=== PATIENT | female | born 1990 | race Caucasian/White ===

== ENCOUNTER 2024-11-15 02:12 | Emergency (ER) | payer MEDICAID, SELFPAY ==
[2024-11-15 02:13] VITALS: BMI 27.8
[2024-11-15 02:25] VITALS: BP 118/79; PULSE 105; RESP 18; TEMP 36.8; O2SAT 99
--- NOTE | 2024-11-15 03:05 | XR_ITS ---
Examination: Abdomen sonogram, Limited Date and time of exam: November 15, 2024 at 0422 hrs. Indications: Right upper abdominal pain beginning 2 days ago Technique: Real-time kaplan scale transabdominal sonographic images of the upper abdomen obtained. Findings: Gallbladder contracted around large gallstone Gallbladder wall is thickened 0.5 cm Common bile duct 0.3 cm Pancreatic head 2.5 cm Liver 14.5 cm fatty infiltration no focal liver lesions Normal hepatopedal portal venous flow Patent IVC Impression: Cholelithiasis Thickened gallbladder wall suspicious for cholecystitis, consider HIDA scan or MRCP follow-up
[2024-11-15 03:37] LABS: HCG Qualitative,Urine Negative
--- NOTE | 2024-11-15 03:37 | PC.NURSE ---
Initial contact with pt. Pt c/o mid-epigastric pain since 18:00.
[2024-11-15 03:40] LABS: Basophils % (Auto) 1 % (0-2.5); Eosinophils # (Auto) 0.1 Thou/mm3 (0.0-0.5); Eosinophils % (Auto) 2 % (0-10); Hematocrit 38.6 % (36.0-46.0); Immature Granulocytes % (Auto) 0 % (0-0); Immature Granulocytes Auto 0.02 Thou/mm3 (0.00-0.00); Lymphocytes # (Auto) 2.8 Thou/mm3 (1.0-4.8); Lymphocytes % (Auto) 32 % (10-50); Mean Corpuscular HGB Conc 33.7 g/dl (31.0-37.0); Mean Corpuscular Hemoglobin 31.6 pg (25.0-35.0); Mean Corpuscular Volume 94 fL (80-100); Monocytes # (Auto) 0.6 Thou/mm3 (0.0-0.8); Monocytes % (Auto) 6 % (0-12); Neutrophils # (Auto) 5.1 Thou/mm3 (1.8-7.7); Neutrophils % (Auto) 59 % (37-80); Nucleated Red Blood Cell % 0 /100 WBC (0); Platelet Count 239 Thou/mm3 (140-440); RDW Standard Deviation 44.3 fL (36.4-46.3); Red Blood Count 4.11 Miln/mm3 (4.00-5.20); White Blood Count 8.6 Thou/mm3 (3.6-11.0)
[2024-11-15] MEDS: ONDANSETRON ODT 4 MG TABRAP PO (03:42)
[2024-11-15 03:43] LABS: Amphetamine/Methamp Scrn,U Negative (Negative); Barbiturate Screen,Urine Negative (Negative); Benzodiazepines Screen,Urine Negative (Negative); Benzoylecgonine Screen, Ur Negative (Negative); Fentanyl Screen,Urine Negative (Negative); Opiate Screen,Urine Negative (Negative); THC Screen,Urine Negative (Negative)
[2024-11-15] MEDS: FAMOTIDINE 20 MG TABLET 40 MG PO (03:44)
[2024-11-15] MEDS: MG HYD/AL HYD/SIME (Maalox Reg) SUSP 30 ML UDC PO (03:45)
[2024-11-15 03:46] LABS: Alanine Aminotransferase 36 U/L (10-49); Albumin, Serum 4.3 gm/dL (3.5-5.0); Albumin/Globulin Ratio 1.7 (1.2-2.2); Alkaline Phosphatase 73 U/L (46-116); Anion Gap 6 (7-16); Aspartate Amino Transferase 18 U/L (0-34); BUN/Creatinine Ratio 20 Ratio (12-20); Bilirubin,Total 0.3 mg/dL (0.3-1.2); Blood Urea Nitrogen 16 mg/dL (9-23); Calcium 9.1 mg/dL (8.3-10.6); Calcium (Corrected) 9.1 mg/dL (8.5-10.1); Chloride 109 mMol/L (98-107); Creatinine (Component) 0.8 mg/dL (0.6-1.3); Estimated Creatinine Clearance 108.3 mL/min (>60); Globulin 2.5 gm/dL (2.3-3.5); Glucose 91 mg/dL (74-106); Lipase 41 U/L (12-53); Osmolality,Calculated 280 (275-295); Potassium 3.7 mMol/L (3.4-5.1); Sodium 140 mMol/L (136-145); Total Protein 6.8 gm/dL (5.7-8.2); eGFR > 60 See Note
[2024-11-15 03:50] VITALS: BP 112/68; PULSE 80; RESP 18; O2SAT 98
--- NOTE | 2024-11-15 04:20 | PC.NURSE ---
To US via w/c.
--- NOTE | 2024-11-15 04:36 | PC.NURSE ---
Pt back from US, pain tolerable per pt.
--- NOTE | 2024-11-15 05:21 | PRELIM_ITS ---
Gallbladder ultrasound. November 15, 2024 at 0422 hours Clinical history: Right upper quadrant, epigastric pain. Comparison: No prior study is available for comparison. Findings: Gallbladder wall is 4.6 mm thick. Gallbladder is filled with shadowing calculi. Common bile duct is 3 mm in diameter. The liver is 14.5 cm long. Main portal vein is antegrade. Pancreas is unremarkable. Impression: Cholelithiasis with wall thickening suggesting cholecystitis. Report Electronically Signed By: Ted Anne 11/15/2024 5:21:08 AM [EST]
[2024-11-15 05:32] VITALS: BP 104/63; PULSE 80; RESP 18; TEMP 36.8; O2SAT 97
--- NOTE | 2024-11-15 05:35 | EDNOTE_ITS ---
<Statement entered by Manisha Bardales MD - 11/15/24 18:35> As co-signing physician, I was present and available for consult prn. I concur with the plan and care as documented by the midlevel provider. ED Abdominal Pain RME/HPI General Chief Complaint: Abdominal Pain Stated complaint: UPPER ABD PAIN Time seen by provider: 11/15/24 03:04 Arrival date/time: 11/15/24 02:12 34F with history of gallstones presents to ED with 1 day of epigastric and RUQ pain (epi>RUQ) and some N/V. Patient denies dysuria, diarrhea, and vaginal bleeding. Limitations: no limitations Related Data Previous Rx's ?Medication ?Instructions ?Recorded Hydrocodone/Acetaminophen * (NORCO 1 tab PO Q4H PRN pa in #30 tabs 02/16/16 5/325 *) gabapentin 300 mg capsule 300 mg PO BID #30 caps 02/10 hydrocodone 5 mg-acetaminophen 300 1 tab PO BID PRN pa in #10 tabs 05/06/24 mg tablet Allergies Allergy/AdvReac Type Severity Reaction Status Date / Time No Known Allergies Allergy Verified 11/15/24 02:16 Review of Systems Review of Systems Systems Reviewed: All systems reviewed, normal except as documented Constitutional Constitutional: Reports system reviewed and no additional complaints, except as documented, Denies fever(s) and Denies headache(s) ENT Ears, Nose, Mouth, and Throat: Denies disequilibrium and Denies headache(s) Cardiovascular Cardiovascular: Reports system reviewed and no additional complaints, except as documented, Denies chest pain and Denies dyspnea Respiratory Respiratory: Reports system reviewed and no additional complaints, except as documented, Denies cough and Denies dyspnea Gastrointestinal Gastrointestinal: Reports system reviewed and no additional complaints, except as documented, Reports as per HPI, Reports abdominal pain, Reports nausea and Reports vomiting Neurologic Neurologic: Reports system reviewed and no additional complaints, except as documented, Denies confusion, Denies disequilibrium and Denies headache(s) Psychiatric Psychiatric: Denies confusion Past Medical History Social History SMOKING STATUS: Current some day smoker ED Exam General Limitations: Present no limitations General appearance: Present alert and in no apparent distress Head Head exam: Present atraumatic Eye Eye exam: Present normal appearance, PERRL and EOMI ENT ENT exam: Present normal exam, normal oropharynx and mucous membranes moist Neck Neck exam: Present normal inspection, full ROM and trachea midline Chest Chest inspection: Present normal inspection and symmetric chest wall rise Respiratory Respiratory exam: Present normal lung sounds bilaterally Cardiovascular Cardiovascular exam: Present regular rate, normal rhythm and normal heart sounds Abdominal Exam Abdominal exam: Present soft and normal bowel sounds Abdominal tenderness: Present RUQ, epigastrium and mild Extremities Exam Extremities exam: Present normal inspection and full ROM Back Exam Back exam: Present normal inspection and full ROM Neurological Exam Neurological exam: Present alert, oriented X3 and CN II-XII intact Psychiatric Psychiatric exam: Present normal affect and normal mood Skin Skin exam: Present warm, dry, intact and normal color Course Quality Measures none Orders Category Date Time Status US gall bladder Stat Exams 11/15/24 03:05 Taken CBC Stat Lab 11/15/24 03:15 Completed CMP [Comprehensive Metabolic Panel] Stat Lab 11/15/24 03:15 Completed Drug Screen,Urine Stat Lab 11/15/24 03:11 Completed HCG Qualitative,Urine Stat Lab 11/15/24 03:11 Completed Lipase Stat Lab 11/15/24 03:15 Completed Famotidine [Pepcid] Med 11/15/24 03:05 Discontinued 40 mg PO X1 ONE Ondansetron Odt [Zofran Odt] Med 11/15/24 03:05 Discontinued 4 mg PO X1 ONE mg Hyd/Al Hyd/Mandi Susp [Maalox Susp] Med 11/15/24 03:05 Discontinued 30 ml PO X1 ONE Vital Signs Vital signs: Vital Signs Temperature 98.2 F 11/15/24 02:25 Pulse Rate 105 H 11/15/24 02:25 Respiratory Rate 18 11/15/24 02:25 Blood Pressure 118/79 11/15/24 02:25 Pulse Oximetry (%) 99 11/15/24 02:25 Oxygen Delivery Method Room Air 11/15/24 02:25 O2 at 99% on RA and WNLs Abdominal Pain MDM MDM Narrative MDM Narrative:: 34F with history of gallstones presents to ED with 1 day of epigastric and RUQ pain (epi>RUQ) and some N/V. Patient denies dysuria, diarrhea, and vaginal bleeding. Physical exam reveals RUQ and epigastric tenderness (epi>RUQ). Patient is afebrile, calm, and alert. GI cocktail greatly improved symptoms. US reveals possible cholecystitis. However, given no leukocytosis, normal LFTs and lipase, improved symptoms with GI cocktail, primarily epigastric pain/tenderness, and that patient wants to go home rather than wait to evaluated by surgeon in AM; patient will be discharged. Patient data External records reviewed:: [facility] previous records Clinical information provided by:: patient Social determinants that could affect healthcare access:: none Patient has the following chronic illnesses:: none How is presenting disease/condition affected by chronic disease/condition?: no chronic disease Evaluation data The following diagnostics were reviewed and interpreted by me:: lab results and radiology exam(s) Lab and/or radiology exams considered but not ordered:: ordered Interpretation Summary: above Medications / Prescriptions Medications or Prescriptions considered but not ordered:: ordered Medication administrations:: Medication Administration History Discontinued Medications Al Hydrox/Mg Hydrox/Simethicone (Mg Hyd/Al Hyd/Mandi (Maalox Reg) Susp 30 Ml Udc) 30 ml PO X1 ONE Stop: 11/15/24 03:06 Last Admin: 11/15/24 03:45 Dose: 30 ml Documented By: CEDRICK Famotidine (Famotidine 20 Mg Tablet) 40 mg PO X1 ONE Stop: 11/15/24 03:06 Last Admin: 11/15/24 03:44 Dose: 40 mg Documented By: CEDRICK Ondansetron HCl (Ondansetron Odt 4 Mg Tabrap) 4 mg PO X1 ONE; Protocol Stop: 11/15/24 03:06 Last Admin: 11/15/24 03:42 Dose: 4 mg Documented By: CEDRICK above Consultations Consultation(s) initiated? (list below): No Diagnosis Differential diagnosis abdominal pain: abdominal pain, acute appendicitis, calculus of kidney, constipation, diverticulitis, endometriosis, gastroenteritis, pancreatitis, small bowel obstruction and other (gastritis, biliary disease) Most likely diagnosis given after review of the tests above:: gastritis, biliary disease Admission Indicated Admission indicated?: not indicated Admission Request Was there a request for admission?: No Disposition Plan Disposition Plan: Discharge Discharge Attestation Discharge Attestation: The patient and all family members were given an opportunity to ask questions and understood the discharge instructions. Discharge instructions specifically effects, indications for sooner follow up or return to the emergency department, and the expected course of current diagnosis. Patient condition: Stable Discharge Plan Plan Patient Disposition: HOME (Self Care) Disposition Comment: Stable Prescriptions/Referrals Prescriptions/Med Rec: No Action Hydrocodone/Acetaminophen * (NORCO 5/325 *) 1 TAB tablet 1 tab PO Q4H PRN (Reason: pain) Qty: 30 0RF gabapentin 300 mg capsule 300 mg PO BID Qty: 30 0RF hydrocodone-acetaminophen 5-300 mg tablet 1 tab PO BID MDD 10 mg PRN (Reason: pain) Qty: 10 0RF Referrals: Nano Paredes PA-C [Primary Care Provider] - In 1 week Problem List Clinical Impression: Gastritis, Gallstones Patient/Caregiver Discharge Instructions Education Materials: ED Gallstones with Biliary Colic, ED Gastritis (Adult) Additional Instructions: Please follow-up with PCP within 24-48 hours and return immediately if symptoms worsen. In terms of gallstones, can also see PCP for referral to general surgeon for elective/preemptive outpatient gallbladder removal. In terms of gastritis, try some OTC TUMs and/or Pepcid. If problem persists, can see PCP for possible additional evaluation/treatment including PPI use, H. pylori testing and/or referral to GI. Print Language: Occitan Stand Alone Forms: Patient Portal Info Letter KERA/TERRY Supervising Physician KERA/TERRY Supervising Physician: Dr. Bardales
--- NOTE | 2024-11-15 05:36 | PC.NURSE ---
Kobe COTE spoke to pt with regards to results and plan of care.
== END 2024-11-15 05:36 | disposition home or self-care (01) ==
PROVIDERS: Physician Assistant; Emergency Provider Emergency Medicine; PCP Physician Assistant
DX: K29.70 Gastritis, unspecified, without bleeding (principal); K80.20 Calculus of gallbladder without cholecystitis without obstruction
CPT/HCPCS: 36415; 76705; 80053; 80307; 81025; 83690; 85025; 99284; Q0162; A9270

== ENCOUNTER 2024-11-24 22:24 | Emergency (ER) | payer MEDICAID, SELFPAY ==
[2024-11-24 22:24] VITALS: BMI 27.3
[2024-11-24 22:32] VITALS: BP 120/82; PULSE 91; RESP 20; TEMP 36.8; O2SAT 98
--- NOTE | 2024-11-24 22:36 | PD.EDRME ---
Rapid Medical Screening Exam RME Arrival date/time: 11/24/24 22:24 34-year-old female past medical history of gallstones presents emergency department complaining of epigastric pain that radiates towards the back with episodes of vomiting that started earlier today. Chief Complaint: Abdominal Pain Time Seen by Provider: 11/24/24 22:34 Vital signs: Vital Signs Temperature 98.3 F 11/24/24 22:32 Pulse Rate 91 11/24/24 22:32 Respiratory Rate 20 11/24/24 22:32 Blood Pressure 120/82 11/24/24 22:32 Pulse Oximetry (%) 98 11/24/24 22:32 Oxygen Delivery Method Room Air 11/24/24 22:32 Vital signs reviewed by provider: Yes
[2024-11-24 23:13] LABS: Basophils # (Auto) 0.1 Thou/mm3 (0.0-0.2); Basophils % (Auto) 1 % (0-2.5); Eosinophils # (Auto) 0.1 Thou/mm3 (0.0-0.5); Eosinophils % (Auto) 1 % (0-10); Hematocrit 40.4 % (36.0-46.0); Hemoglobin 13.8 g/dL (12.0-16.0); Immature Granulocytes % (Auto) 0 % (0-0); Immature Granulocytes Auto 0.03 Thou/mm3 (0.00-0.00); Lymphocytes # (Auto) 4.3 Thou/mm3 (1.0-4.8); Lymphocytes % (Auto) 37 % (10-50); Mean Corpuscular HGB Conc 34.2 g/dl (31.0-37.0); Mean Corpuscular Volume 94 fL (80-100); Monocytes # (Auto) 0.7 Thou/mm3 (0.0-0.8); Monocytes % (Auto) 6 % (0-12); Neutrophils # (Auto) 6.3 Thou/mm3 (1.8-7.7); Neutrophils % (Auto) 55 % (37-80); Nucleated Red Blood Cell % 0 /100 WBC (0); Platelet Count 271 Thou/mm3 (140-440); RDW Standard Deviation 43.6 fL (36.4-46.3); Red Blood Count 4.31 Miln/mm3 (4.00-5.20); White Blood Count 11.6 Thou/mm3 (3.6-11.0)
[2024-11-24 23:16] LABS: HCG,Qualitative Serum Negative
[2024-11-24] MEDS: KETOROLAC INJ 60 MG/2 ML VIAL 30 MG IM (23:19)
[2024-11-24] MEDS: ONDANSETRON ODT 4 MG TABRAP PO (23:20)
[2024-11-24 23:22] LABS: Anion Gap 8 (7-16); BUN/Creatinine Ratio 16 Ratio (12-20); Blood Urea Nitrogen 14 mg/dL (9-23); Carbon Dioxide 23.7 mMol/L (20.0-31.0); Chloride 107 mMol/L (98-107); Creatinine (Component) 0.9 mg/dL (0.6-1.3); Potassium 3.5 mMol/L (3.4-5.1); Sodium 139 mMol/L (136-145)
[2024-11-24 23:23] LABS: Alanine Aminotransferase 20 U/L (10-49); Albumin, Serum 4.8 gm/dL (3.5-5.0); Albumin/Globulin Ratio 1.9 (1.2-2.2); Alkaline Phosphatase 68 U/L (46-116); Aspartate Amino Transferase 20 U/L (0-34); Bilirubin,Total 0.3 mg/dL (0.3-1.2); Calcium 9.5 mg/dL (8.3-10.6); Calcium (Corrected) 9.5 mg/dL (8.5-10.1); Estimated Creatinine Clearance 95.5 mL/min (>60); Globulin 2.5 gm/dL (2.3-3.5); Glucose 105 mg/dL (74-106); Lipase 60 U/L (12-53); Osmolality,Calculated 278 (275-295); Total Protein 7.3 gm/dL (5.7-8.2); eGFR > 60 See Note
--- NOTE | 2024-11-25 00:05 | XR_ITS ---
Examination: Abdomen sonogram, Limited Date and time of exam: November 22, 2024 0102 hrs. Indications: Right upper abdominal pain nausea vomiting beginning 3:00 PM yesterday Technique: Real-time kaplan scale transabdominal sonographic images of the upper abdomen obtained. Findings: 3.6 cm gallstone Gallbladder wall 0.30 cm no edema Common bile duct 0.40 cm Pancreatic head 2.0 cm Liver 13.4 cm no focal liver lesions. Normal hepatopedal portal venous flow. Patent IVC. Impression: Cholelithiasis, negative for cholecystitis Normal common bile duct.
--- NOTE | 2024-11-25 02:11 | PRELIM_ITS ---
Gallbladder ultrasound with doppler and wave doppler spectral analysis. November 25, 2024 0102 hours Clinical history: Epigastric pain, history of gallstones. Comparison: None available at the time of this report. Findings: The visualized liver is normal in echogenicity without mass or ductal dilatation. Gallstones. No gallbladder wall thickening or pericholecystic fluid is identified. The common duct is normal in caliber at 3.8 mm. No free fluid is demonstrated on the submitted images. The portal vein is patent with hepatopetal flow and normal wave Doppler spectral analysis. Francois sign is not available at the time of this report. Impression: Gallstones without evidence of acute cholecystitis. Report Electronically Signed By: Justin Gonzales 11/25/2024 2:10:55 AM [EST]
[2024-11-25 02:12] LABS: Collection Type, Urine Clean Catch
[2024-11-25 02:28] LABS: Bilirubin,Urine Negative (Negative); Blood,Urine Negative (Negative); Clarity,Urine Clear (Clear/Hazy); Color,Urine Yellow (Lt Yel-Yel); Culture Indicated,Urine Not Indicated; Glucose, Urine Negative (Negative); Ketones,Urine Negative (Negative); Leukocyte Esterase,Urine Positive (Negative); Nitrite,Urine Negative (Negative); Protein,Urine Trace (Neg - Trace); RBC,Urine 4 /hpf (0-3); Squamous Epithelial Cell,Urine 14 /hpf (0-5); Urobilinogen,Urine Negative mg/dL (0.0-1.0); WBC,Urine 7 /hpf (0-5)
--- NOTE | 2024-11-25 02:31 | PD.EDABDPN ---
ED Abdominal Pain RME/HPI General Chief Complaint: Abdominal Pain Stated complaint: HX GALLSTONES ABD PAIN Time seen by provider: 11/24/24 22:34 Arrival date/time: 11/24/24 22:24 34-year-old female past medical history of gallstones presents emergency department complaining of epigastric pain that radiates towards the back with episodes of vomiting that started earlier today. Patient denies any fever, chills, diarrhea, or any other associated symptom. Source: patient Mode of arrival: ambulatory Limitations: no limitations RME / HPI RME / HPI narrative: 11/24/24 22:24 34-year-old female past medical history of gallstones presents emergency department complaining of epigastric pain that radiates towards the back with episodes of vomiting that started earlier today. Related Data Previous Rx's ?Medication ?Instructions ?Recorded Hydrocodone/Acetaminophen * (NORCO 1 tab PO Q4H PRN pain #30 tabs 02/15/ 5/325 *) gabapentin 300 mg capsule 300 mg PO BID #30 caps 02/11/24 hydrocodone 5 mg-acetaminophen 300 1 tab PO BID PRN pain #10 tabs 05/06/24 mg tablet acetaminophen 500 mg capsule 500 mg PO Q6H PRN pain #30 caps 11/25/24 ibuprofen 600 mg tablet 600 mg PO Q8H PRN pain #20 tabs 11/25/24 ondansetron 4 mg disintegrating 4 mg PO Q8H PRN nausea and 11/25/24 tablet vomiting #7 tabs Allergies Allergy/AdvReac Type Severity Reaction Status Date / Time No Known Allergies Allergy Verified 11/15/24 02:16 Review of Systems Review of Systems Systems Reviewed: All systems reviewed, normal except as documented Constitutional Constitutional: Reports system reviewed and no additional complaints, except as documented, Denies body ache(s), Denies chills and Denies fever(s) Eyes Eyes: Reports system reviewed and no additional complaints, except as documented and Denies change in vision ENT Ears, Nose, Mouth, and Throat: Reports system reviewed and no additional complaints, except as documented, Denies disequilibrium, Denies dizziness, Denies sore throat and Denies vertigo Cardiovascular Cardiovascular: Reports system reviewed and no additional complaints, except as documented, Denies chest pain and Denies dyspnea Respiratory Respiratory: Reports system reviewed and no additional complaints, except as documented, Denies chest congestion, Denies cough and Denies dyspnea Gastrointestinal Gastrointestinal: Reports system reviewed and no additional complaints, except as documented, Reports abdominal pain, Denies nausea and Reports vomiting Musculoskeletal Musculoskeletal: Reports system reviewed and no additional complaints, except as documented, Denies abnormal gait and Denies arthralgias Integumentary/Breasts Skin/Breast: Reports system reviewed and no additional complaints, except as documented, Denies erythema, Denies rash and Denies wounds Neurologic Neurologic: Reports system reviewed and no additional complaints, except as documented, Denies abnormal gait, Denies disequilibrium, Denies dizziness and Denies vertigo Past Medical History Social History SMOKING STATUS: Former smoker ED Exam General Limitations: Present no limitations General appearance: Present alert and in no apparent distress Head Head exam: Present atraumatic Eye Eye exam: Present normal appearance, PERRL and EOMI ENT ENT exam: Present normal exam, normal oropharynx and mucous membranes moist Neck Neck exam: Present normal inspection, full ROM and trachea midline Chest Chest inspection: Present normal inspection and symmetric chest wall rise Respiratory Respiratory exam: Present normal lung sounds bilaterally Cardiovascular Cardiovascular exam: Present regular rate, normal rhythm and normal heart sounds Abdominal Exam Abdominal exam: Present soft and normal bowel sounds; Absent Francois's sign or tenderness at [place]Bur[place]'s Point Abdominal tenderness: Present epigastrium Extremities Exam Extremities exam: Present normal inspection and full ROM Back Exam Back exam: Present normal inspection and full ROM Neurological Exam Neurological exam: Present alert, oriented X3 and CN II-XII intact Psychiatric Psychiatric exam: Present normal affect and normal mood Skin Skin exam: Present warm, dry, intact and normal color Course Quality Measures none Orders Category Date Time Status US gall bladder Stat Exams 11/25/24 00:05 Taken CBC Stat Lab 11/24/24 22:47 Completed CMP [Comprehensive Metabolic Panel] Stat Lab 11/24/24 22:47 Completed Drug Screen,Urine Stat Lab 11/25/24 01:52 Received HCG,Qualitative Serum Stat Lab 11/24/24 22:47 Completed Lipase Stat Lab 11/24/24 22:47 Completed Urinalysis, C/S if Indicated Stat Lab 11/25/24 01:52 Completed Ketorolac Inj [Toradol Inj] Med 11/24/24 22:36 Discontinued 30 mg IM X1 ONE Ondansetron Odt [Zofran Odt] Med 11/24/24 22:36 Discontinued 4 mg PO X1 ONE Vital Signs Vital signs: Vital Signs Temperature 98.3 F 11/24/24 22:32 Pulse Rate 91 11/24/24 22:32 Respiratory Rate 20 11/24/24 22:32 Blood Pressure 120/82 11/24/24 22:32 Pulse Oximetry (%) 98 11/24/24 22:32 Oxygen Delivery Method Room Air 11/24/24 22:32 98% room air within normal limits Abdominal Pain MDM MDM Narrative MDM Narrative:: 34-year-old female past medical history of gallstones presents emergency department complaining of epigastric pain that radiates towards the back with episodes of vomiting that started earlier today. Patient denies any fever, chills, diarrhea, or any other associated symptom. CBC was unremarkable for any leukocytosis. CMP was unremarkable for any elevated LFTs or gross electrolyte abnormalities. Lipase mild elevation of 60. Ultrasound just on remarkable for gallstones but no evidence of cholecystitis. Patient reported significant improvement in pain and symptoms after pain medication with no more episodes of vomiting. Patient stable for discharge. Patient instructed to follow-up with primary care provider and request referral to general surgeon and return to emergency department for any worsening symptoms or as needed. Patient data External records reviewed:: [facility] previous records Clinical information provided by:: patient Social determinants that could affect healthcare access:: none Patient has the following chronic illnesses:: See chart How is presenting disease/condition affected by chronic disease/condition?: exacerbated by Evaluation data The following diagnostics were reviewed and interpreted by me:: lab results and radiology exam(s) Lab and/or radiology exams considered but not ordered:: Ordered Interpretation Summary: Interpreted by me Medications / Prescriptions Medications or Prescriptions considered but not ordered:: Ordered Medication administrations:: Medication Administration History Discontinued Medications Ketorolac Tromethamine (Ketorolac Inj 60 Mg/2 Ml Vial) 30 mg IM X1 ONE Stop: 11/24/24 22:37 Last Admin: 11/24/24 23:19 Dose: 30 mg Documented By: FAIZAN Ondansetron HCl (Ondansetron Odt 4 Mg Tabrap) 4 mg PO X1 ONE; Protocol Stop: 11/24/24 22:37 Last Admin: 11/24/24 23:20 Dose: 4 mg Documented By: FAIZAN Given Consultations Consultation(s) initiated? (list below): No Diagnosis Differential diagnosis abdominal pain: abdominal pain, acute appendicitis, calculus of kidney, constipation, diverticulitis, endometriosis, gastroenteritis, pancreatitis and small bowel obstruction Most likely diagnosis given after review of the tests above:: Gallstones Admission Indicated Admission indicated?: not indicated Admission Request Was there a request for admission?: No Disposition Plan Disposition Plan: Discharge Discharge Attestation Discharge Attestation: The patient and all family members were given an opportunity to ask questions and understood the discharge instructions. Discharge instructions specifically effects, indications for sooner follow up or return to the emergency department, and the expected course of current diagnosis. Patient condition: Stable Discharge Plan Plan Patient Disposition: HOME (Self Care) Disposition Comment: Stable Prescriptions/Referrals Prescriptions/Med Rec: New ibuprofen 600 mg tablet 600 mg PO Q8H PRN (Reason: pain) Qty: 20 0RF ondansetron 4 mg tablet,disintegrating 4 mg PO Q8H PRN (Reason: nausea and vomiting) Qty: 7 0RF acetaminophen 500 mg capsule 500 mg PO Q6H PRN (Reason: pain) Qty: 30 0RF No Action Hydrocodone/Acetaminophen * (NORCO 5/325 *) 1 TAB tablet 1 tab PO Q4H PRN (Reason: pain) Qty: 30 0RF gabapentin 300 mg capsule 300 mg PO BID Qty: 30 0RF hydrocodone-acetaminophen 5-300 mg tablet 1 tab PO BID MDD 10 mg PRN (Reason: pain) Qty: 10 0RF Referrals: Ronda Forbes, RO[employer]ER INSTALLER [Primary Care Provider] - In 1 week Problem List Clinical Impression: Gallstones Patient/Caregiver Discharge Instructions Discharge Activity: activity as tolerated Education Materials: Treating Gallstones, Discharge Instructions for ..., ED Gallstones with Biliary Colic Additional Instructions: Take ibuprofen as needed for pain. Drink plenty of fluids and stay hydrated. Avoid eating fatty spicy foods for the next 2 to 3 days. Follow-up with primary care provider in 2 to 3 days and request referral to general surgeon if symptoms persist. Return to emergency department for any worsening symptoms or as needed. Print Language: Portuguese Stand Alone Forms: [facility] Award Info., Patient Portal Info Letter PA/LIQUOR ESTABLISHMENT MANAGER Supervising Physician PA/LIQUOR ESTABLISHMENT MANAGER Supervising Physician: Dr. Canchola
[2024-11-25 02:42] LABS: Amphetamine/Methamp Scrn,U Positive (Negative); Barbiturate Screen,Urine Negative (Negative); Benzodiazepines Screen,Urine Negative (Negative); Benzoylecgonine Screen, Ur Negative (Negative); Fentanyl Screen,Urine Negative (Negative); Opiate Screen,Urine Negative (Negative); THC Screen,Urine Negative (Negative)
[2024-11-25 02:52] VITALS: BP 116/76; PULSE 76; RESP 18; TEMP 36.8; O2SAT 99
== END 2024-11-25 02:54 | disposition home or self-care (01) ==
PROVIDERS: Emergency Provider Emergency Medicine; PCP Nurse Practitioner Family
DX: K80.20 Calculus of gallbladder without cholecystitis without obstruction (principal); Z87.891 Personal history of nicotine dependence
CPT/HCPCS: 36415; 76705; 80053; 80307; 81001; 83690; 84703; 85025; 96372; 99284; J1885; Q0162

== ENCOUNTER 2024-11-26 23:28 | Emergency (ER) | payer MEDICAID, SELFPAY ==
[2024-11-26 23:29] VITALS: PULSE 78; RESP 18; O2SAT 99; BMI 29.0
[2024-11-27 00:46] VITALS: BP 117/81; PULSE 81; RESP 18; TEMP 36.8; O2SAT 99
[2024-11-27] MEDS: MORPHINE SULF INJ 10 MG/ML VIAL 5 MG IM (00:58)
--- NOTE | 2024-11-27 01:12 | EDNOTE_ITS ---
ED Abdominal Pain RME/HPI General Chief Complaint: Abdominal Pain Stated complaint: ABD PAIN HX GALLSTONES Time seen by provider: 11/27/24 00:49 Arrival date/time: 11/26/24 23:28 34F with history of gallstones presents to ED with continued RUQ pain. Patient was here 2 days ago with benign gallstone work-up. Patient is waiting to establish care with PCP and general surgeon. Patient only wants meds and no diagnostics. Limitations: no limitations Related Data Previous Rx's ?Medication ?Instructions ?Recorded Hydrocodone/Acetaminophen * (NORCO 1 tab PO Q4H PRN pa in #30 tabs 02/16/16 5/325 *) gabapentin 300 mg capsule 300 mg PO BID #30 caps 02/10 hydrocodone 5 mg-acetaminophen 300 1 tab PO BID PRN pa in #10 tabs 05/06/24 mg tablet acetaminophen 500 mg capsule 500 mg PO Q6H PRN pain #3 0 caps 11/25/24 ibuprofen 600 mg tablet 600 mg PO Q8H PRN pain #20 t abs 11/25/24 ondansetron 4 mg disintegrating 4 mg PO Q8H PRN nausea and 11/25/24 tablet vomiting #7 tabs Allergies Allergy/AdvReac Type Severity Reaction Status Date / Time No Known Allergies Allergy Verified 11/15/24 02:16 Review of Systems Review of Systems Systems Reviewed: All systems reviewed, normal except as documented Constitutional Constitutional: Reports system reviewed and no additional complaints, except as documented, Denies fever(s) and Denies headache(s) ENT Ears, Nose, Mouth, and Throat: Denies disequilibrium and Denies headache(s) Cardiovascular Cardiovascular: Reports system reviewed and no additional complaints, except as documented, Denies chest pain and Denies dyspnea Respiratory Respiratory: Reports system reviewed and no additional complaints, except as documented, Denies cough and Denies dyspnea Gastrointestinal Gastrointestinal: Reports system reviewed and no additional complaints, except as documented, Reports as per HPI, Reports abdominal pain, Denies nausea and Denies vomiting Neurologic Neurologic: Reports system reviewed and no additional complaints, except as documented, Denies confusion, Denies disequilibrium and Denies headache(s) Psychiatric Psychiatric: Denies confusion Past Medical History Past Medical History CARDIAC: Negative Congestive Heart Failure RESPIRATORY: Negative Chronic Obstructive Pulmonary Disease (COPD) GENITOURINARY: Negative Renal Disease ENDOCRINE: Negative Diabetes Mellitus Type 1 or Diabetes Mellitus Type 2 Social History SMOKING STATUS: Former smoker ED Exam General Limitations: Present no limitations General appearance: Present alert and in no apparent distress Head Head exam: Present atraumatic Eye Eye exam: Present normal appearance, PERRL and EOMI ENT ENT exam: Present normal exam, normal oropharynx and mucous membranes moist Neck Neck exam: Present normal inspection, full ROM and trachea midline Chest Chest inspection: Present normal inspection and symmetric chest wall rise Respiratory Respiratory exam: Present normal lung sounds bilaterally Cardiovascular Cardiovascular exam: Present regular rate, normal rhythm and normal heart sounds Abdominal Exam Abdominal exam: Present soft and normal bowel sounds Abdominal tenderness: Present RUQ and mild Extremities Exam Extremities exam: Present normal inspection and full ROM Back Exam Back exam: Present normal inspection and full ROM Neurological Exam Neurological exam: Present alert, oriented X3 and CN II-XII intact Psychiatric Psychiatric exam: Present normal affect and normal mood Skin Skin exam: Present warm, dry, intact and normal color Course Quality Measures none Orders Category Date Time Status HYDROcodone*/APAP 5/325 [[place] 5/325] Med 11/27/24 00:50 Discontinued 1 tab PO X1 ONE Morphine Inj Med 11/27/24 00:55 Discontinued 5 mg IM X1 ONE Vital Signs Vital signs: Vital Signs Temperature 98.2 F 11/27/24 00:46 Pulse Rate 81 11/27/24 00:46 Respiratory Rate 18 11/27/24 00:46 Blood Pressure 117/81 11/27/24 00:46 Pulse Oximetry (%) 99 11/27/24 00:46 Oxygen Delivery Method Room Air 11/27/24 00:46 O2 at 99% on RA and WNLs Abdominal Pain MDM MDM Narrative MDM Narrative:: 34F with history of gallstones presents to ED with continued RUQ pain. Patient was here 2 days ago with benign gallstone work-up. Patient is waiting to establish care with PCP and general surgeon. Patient only wants meds and no diagnostics. Physical exam reveals mild RUQ tenderness. Patient is afebrile, calm, and alert. Meds given. Patient data External records reviewed:: [facility] previous records Clinical information provided by:: patient Social determinants that could affect healthcare access:: none Patient has the following chronic illnesses:: none How is presenting disease/condition affected by chronic disease/condition?: no chronic disease Evaluation data The following diagnostics were reviewed and interpreted by me:: other (specify) (none) Lab and/or radiology exams considered but not ordered:: not ordered Interpretation Summary: n/a Medications / Prescriptions Medications or Prescriptions considered but not ordered:: ordered Medication administrations:: Medication Administration History Discontinued Medications Hydrocodone Bitart/Acetaminophen (Hydrocodone/Apap 5/325 Tablet) 1 tab PO X1 ONE Stop: 11/27/24 00:51 Last Admin: 11/27/24 00:59 Dose: Not Given Documented By: FAIZAN Non-Admin Reason: Cancelled by Provider Morphine Sulfate (Morphine Sulf Inj 10 Mg/Ml Vial) 5 mg IM X1 ONE Stop: 11/27/24 00:56 Last Admin: 11/27/24 00:58 Dose: 5 mg Documented By: FAIZAN above Consultations Consultation(s) initiated? (list below): No Diagnosis Differential diagnosis abdominal pain: abdominal pain, acute appendicitis, calculus of kidney, constipation, diverticulitis, endometriosis, gastroenteritis, pancreatitis, small bowel obstruction and other (biliary colic) Most likely diagnosis given after review of the tests above:: biliary colic Admission Indicated Admission indicated?: not indicated Admission Request Was there a request for admission?: No Disposition Plan Disposition Plan: Discharge Discharge Attestation Discharge Attestation: The patient and all family members were given an opportunity to ask questions and understood the discharge instructions. Discharge instructions specifically effects, indications for sooner follow up or return to the emergency department, and the expected course of current diagnosis. Patient condition: Stable Discharge Plan Plan Patient Disposition: HOME (Self Care) Disposition Comment: STable Prescriptions/Referrals Prescriptions/Med Rec: No Action Hydrocodone/Acetaminophen * (NORCO 5/325 *) 1 TAB tablet 1 tab PO Q4H PRN (Reason: pain) Qty: 30 0RF gabapentin 300 mg capsule 300 mg PO BID Qty: 30 0RF ibuprofen 600 mg tablet 600 mg PO Q8H PRN (Reason: pain) Qty: 20 0RF ondansetron 4 mg tablet,disintegrating 4 mg PO Q8H PRN (Reason: nausea and vomiting) Qty: 7 0RF acetaminophen 500 mg capsule 500 mg PO Q6H PRN (Reason: pain) Qty: 30 0RF hydrocodone-acetaminophen 5-300 mg tablet 1 tab PO BID MDD 10 mg PRN (Reason: pain) Qty: 10 0RF Referrals: Temporary Provider,ED [Physician] - In 1 week Problem List Clinical Impression: Biliary colic Patient/Caregiver Discharge Instructions Education Materials: ED Gallstones with Biliary Colic Additional Instructions: Please follow-up with PCP within 24-48 hours and return immediately if symptoms worsen. Print Language: Gabonese Stand Alone Forms: Patient Portal Info Letter PA/RECYCLE DRIVER Supervising Physician PA/RECYCLE DRIVER Supervising Physician: Dr. Canchola
== END 2024-11-27 01:08 | disposition home or self-care (01) ==
LOC: SERX 11-27 01:05
PROVIDERS: Emergency Provider Emergency Medicine
DX: K80.70 Calculus of gallbladder and bile duct without cholecystitis without obstruction (principal)
CPT/HCPCS: 96372; 99284; J2270

== ENCOUNTER 2025-01-27 06:50 | Day surgery (SDC) | payer MEDICAID, SELFPAY ==
--- NOTE | 2025-01-23 19:08 | ESHP_ITS ---
RE: LACEY BUSH : 1990 DATE OF ADMISSION: 01/27/2025 HISTORY OF PRESENT ILLNESS: This is a 34-year-old 3 para 2- 0-1-2 with chronic pelvic pain, deep dyspareunia, secondary dysmenorrhea, and history of bilateral tubal ligation and delivery, who presents for laparoscopy to rule out endometriosis. The patient also has significant abnormal uterine bleeding and will undergo endometrial ablation. SOCIAL HISTORY: She is . She denies any alcohol or drug use or smoking. ALLERGIES: NO KNOWN DRUG ALLERGIES. MEDICATIONS: None. PAST MEDICAL HISTORY: delivery, neck cyst, and gallstones. PAST SURGICAL HISTORY: delivery, bilateral tubal ligation, laparoscopic cholecystectomy, and excision of neck cyst, benign. REVIEW OF SYSTEMS: She denies any chest pain, palpitations, cough, fever, shortness of breath or lower extremity pain. FAMILY HISTORY: Denies. PHYSICAL EXAMINATION: VITAL SIGNS: Blood pressure is 120/80, heart rate 88, respirations 18, and temperature is 98.6. HEENT: Oropharynx and sclerae are clear. LUNGS: Clear to auscultation bilaterally. HEART: Regular rate and rhythm. ABDOMEN: Old Pfannenstiel scar noted. Old trocar scare noted. EXTREMITIES: Nontender. SKIN: No gross rashes or lesions. NEUROLOGIC: No focal deficit. ASSESSMENT: Abnormal uterine bleeding, dysmenorrhea, dyspareunia, and chronic pelvic pain. PLAN: Diagnostic laparoscopy, possible fulguration of endometriosis, hysteroscopy, fractional dilatation and curettage, and NovaSure endometrial ablation. Informed consent was obtained. The patient was made aware of the risks, complications, alternatives, and benefits of the proposed procedure and she agreed. The patient is aware of the risk of injury to bowel, bladder, uterus, ureters, adjacent organs, pulmonary embolism, deep vein thrombosis, injury to the vessels of the abdominal wall, hematoma, abscess, wound infection, wound dehiscence, pelvic infection, reoperation to repair injury to internal organs, anesthesia complications, the possibility that laparotomy needs to be performed to complete the procedure or control bleeding, and the possibility that the procedure is not able to be completed due to severe adhesions or technical difficulties. DT: 17:52:35 TT: 19:07:00 Ref: [id number] - TID: [id number]
[2025-01-26 07:08] VITALS: BMI 29.8
[2025-01-26 08:31] LABS: Basophils % (Auto) 1 % (0-2.5); Eosinophils # (Auto) 0.1 Thou/mm3 (0.0-0.5); Eosinophils % (Auto) 1 % (0-10); Hematocrit 43.5 % (36.0-46.0); Hemoglobin 14.3 g/dL (12.0-16.0); Immature Granulocytes % (Auto) 0 % (0-0); Immature Granulocytes Auto 0.02 Thou/mm3 (0.00-0.00); Lymphocytes # (Auto) 2.5 Thou/mm3 (1.0-4.8); Lymphocytes % (Auto) 34 % (10-50); Mean Corpuscular HGB Conc 32.9 g/dl (31.0-37.0); Mean Corpuscular Hemoglobin 32.3 pg (25.0-35.0); Mean Corpuscular Volume 98 fL (80-100); Monocytes # (Auto) 0.5 Thou/mm3 (0.0-0.8); Monocytes % (Auto) 7 % (0-12); Neutrophils # (Auto) 4.1 Thou/mm3 (1.8-7.7); Neutrophils % (Auto) 57 % (37-80); Nucleated Red Blood Cell % 0 /100 WBC (0); Platelet Count 289 Thou/mm3 (140-440); RDW Standard Deviation 47.3 fL (36.4-46.3); Red Blood Count 4.43 Miln/mm3 (4.00-5.20); White Blood Count 7.2 Thou/mm3 (3.6-11.0)
[2025-01-26 08:36] LABS: Alanine Aminotransferase 17 U/L (10-49); Albumin, Serum 4.5 gm/dL (3.5-5.0); Albumin/Globulin Ratio 1.6 (1.2-2.2); Alkaline Phosphatase 74 U/L (46-116); Anion Gap 9 (7-16); Aspartate Amino Transferase 16 U/L (0-34); BUN/Creatinine Ratio 11 Ratio (12-20); Beta HCG,Quantitative < 1 mIU/mL (<5.0); Bilirubin,Total 0.2 mg/dL (0.3-1.2); Blood Urea Nitrogen 10 mg/dL (9-23); Calcium 9.1 mg/dL (8.3-10.6); Calcium (Corrected) 9.1 mg/dL (8.5-10.1); Carbon Dioxide 25.9 mMol/L (20.0-31.0); Chloride 110 mMol/L (98-107); Creatinine (Component) 0.9 mg/dL (0.6-1.3); Estimated Creatinine Clearance 96.1 mL/min (>60); Globulin 2.8 gm/dL (2.3-3.5); Glucose 102 mg/dL (74-106); Osmolality,Calculated 287 (275-295); Potassium 3.9 mMol/L (3.4-5.1); Sodium 145 mMol/L (136-145); Total Protein 7.3 gm/dL (5.7-8.2); eGFR > 60 See Note
[2025-01-26 08:46] LABS: Partial Thromboplastin Time 30.6 Seconds (22.0-36.0); Prothrombin Time 10.9 Seconds (9.0-12.2)
[2025-01-27] VITALS (8 sets, daily range): BP systolic 102–120; BP diastolic 56–77; PULSE 77–100; RESP 16–24; TEMP 36.2–36.6; O2SAT 96–100; BMI 28.5
--- NOTE | 2025-01-27 08:10 | CHAP ---
Prayed with patient before her procedure.
--- NOTE | 2025-01-27 10:16 | SUR.PHASEI ---
pt received from OR in recovery bay 7. pt asleep but responds to voice, breathing unlabored on nc 4l. v/s stable. pt dressing to abd x2 and peripad cdi. report received from Jaskaran VELARDE and Dr. Bay.
--- NOTE | 2025-01-27 10:16 | PD.GYNPROC ---
Operative Note - CARDIAC/VASCULAR SONOGRAPHER Procedure Date of procedure: 01/27/25 Procedure Performed: Diagnostic laparoscopy Hysteroscopy Fractional dilatation curettage NovaSure endometrial ablation Indication: Chronic pelvic pain Abnormal uterine bleeding Pre-Op diagnosis: Chronic pelvic pain Abnormal uterine bleeding Post-Op diagnosis: Chronic pelvic pain Abnormal uterine bleeding Upper abdominal omental adhesions Anesthesia type: General Procedure description: After proper informed consent was obtained and the patient made aware the risk complication alternative benefits of the proposed procedure she was taken the operating room where she underwent induction of general anesthesia. She is placed in dorsolithotomy position and prepped and draped you sterile fashion. Timeout was performed. She underwent exam under anesthesia which revealed the above findings. A speculum was placed in vagina a single-tooth tenaculum was placed on the posterior lip of the cervix the acorn uterine manipulator was placed the speculum was removed from the vagina patient was placed in slight Trendelenburg the physician regowned and gloved and a 5 mm incision was made in the umbilical fold with tenting of the abdomen a Veress needle was inserted same confirmed intra-abdominal placement artificial pneumoperitoneum to 12 mmHg was created. The Veress needle was then removed the 5 mm trocar was inserted with tenting up to the abdomen the laparoscope connected video camera was then utilized to visualize the pelvis and the above findings noted a second incision was made in the midline 2 cm above the symphysis pubis through this 5 mm incision a 5 mm trocar was inserted under direct visitation laparoscope. Using the blunt probe and the uterine manipulator photographic record was obtained and the above findings noted. The carbon oxide was removed from the peritoneal cavity the incisions were closed with 4-0 Monocryl and infiltrated with 5 cc each of 0.5% Marcaine with epinephrine the incisions were closed with 4-0 Monocryl and covered with Dermabond attention was then turned to the vagina where the acorn manipulator was then removed and using the Omni hysteroscope the endocervix and uterine cavity was visualized and there was no submucous myomas polyps or distortions or irregularities of the uterine cavity. The endocervix was curetted with a Kevorkian curette and specimen sent to pathology the uterine cavity was curetted with a 5 mm curette and specimen sent to pathology the uterus sounded to 7.5 cm retroverted the cervical length was 3.0 cm uterine cavity length was 4.5 cm and the width with appropriately seating the NovaSure catheter in the uterine cavity was 2.6 cm the carbon oxide cavity integrity assessment test was performed the cavity was intact the ablation was performed for a total of 1 minute and 9 seconds and the control was shut off the array was retracted into the sheath and removed from the uterine cavity redeployed and found to be complete and intact there was no bleeding at the end of the procedure as the instruments were removed from the vagina she was reversed from general anesthesia in supine position and transferred recovery in stable condition she Toller procedure well counts were correct I discussed with the patient's family Khadijah, the nature of her condition and the intraoperative findings expectation for recovery all questions answered. Specimen: other (Endocervical curettings and endometrial curettings) Estimated blood loss (ml): 5 Findings: Normal-appearing uterus ovaries and fallopian tubes no evidence of endometriosis no pelvic adhesions. Adhesions of the omentum to the anterior abdominal wall above the umbilicus Complications: none Surgical staff Operation Date: 01/27/25 09:00 Case Staff Anesthesiologist: Leobardo Bay RN First Assistant: Caitlyn Lopez Diagnosis Discharge Diagnosis (1) Chronic pelvic pain in female: Status: Acute (2) Abnormal uterine bleeding: Status: Acute (3) Status post endometrial ablation: Status: Acute Problem List Completed Was Problem List Reviewed/Reconciled?: Yes
[2025-01-27] MEDS: fentaNYL CIT INJ 50 mCg/ML AMP 2ML 25 MCG IV ×2 (10:35→10:51)
--- NOTE | 2025-01-27 10:37 | SUR.PHASEI ---
pt able to tolerate oral fluids without difficulty swallowing or nausea/vomiting.
--- NOTE | 2025-01-27 11:29 | SUR.PHASEII ---
pt awake and alert, breathing unlabored on room air. v/s stable. pt dressing to abd and peripad cdi. pt able to ambulate to wheelchair with steady gait. d/c instructions given with friend in room, all questions answered. pt d/c via wheelchair with all belongings.
== END 2025-01-27 11:29 | disposition home or self-care (01) ==
PROVIDERS: PCP Family Medicine; Referring Provider Specialist; Visit Provider Specialist
PROC: (CPT 49320; principal; 2025-01-27 08:45)
PROC: 0U5B8ZZ Destruction of Endometrium, Via Natural or Artificial Opening Endoscopic (ICD-10-PCS; CPT 58563; 2025-01-27 08:45)
DX: N93.9 Abnormal uterine and vaginal bleeding, unspecified (principal); G89.29 Other chronic pain; R10.2 Pelvic and perineal pain; Z98.51 Tubal ligation status
CPT/HCPCS: 58563; 49320; 36415; 80053; 84702; 85025; 85610; 85730; 86850; 86900; 86901; A4217; A4649; J0131; J0690; J1100; J1885; J2250; J2405; J2704; J3010; J3490